=== PATIENT | male | born 1945 | race Caucasian/White ===

== ENCOUNTER 2024-01-09 21:12 | Emergency (ER) | payer MEDICARE, SELFPAY ==
[2024-01-09 21:14] VITALS: BP 153/113
[2024-01-09 21:35] VITALS: BP 160/101
[2024-01-09 21:35] LABS: % Basophils 0.4 % (0-2); % Eosinophils 2.3 % (0-6); % Immature Granulocytes 0.1 % (0-0.5); % Neutrophils 57.2 % (42.2-75.2); Absolute Eosinophils 0.2 10^3/uL (0-0.7); Absolute Lymphocytes 2.4 10^3/uL (1.2-3.4); Absolute Monocytes 0.7 10^3/uL (0.1-0.6); Absolute Neutrophils 4.5 10^3/uL (1.4-6.5); Hematocrit 43.2 % (39.0-52.0); Hemoglobin 14.3 g/dL (13.0-18.0); Mean Corp Hgb Conc. 33.1 g/dL (33.0-37.0); Mean Corpuscular Hgb 31.4 pg (27.0-31.0); Mean Corpuscular Volume 94.7 fL (80.0-94.0); Mean Platelet Volume 8.5 fL (7.4-10.4); Nucleated Red Blood Cells % 0 % (-); Platelet Count 204 10^3/uL (130-400); Red Blood Cell Count 4.56 10^6/uL (4.70-6.10); Red Cell Dist. Width 12.7 % (11.5-14.5); White Blood Cell Count 7.9 10^3/uL (4.8-10.8)
[2024-01-09 21:57] LABS: ALT (SGPT) 31 U/L (0-50); AST (SGOT) 62 U/L (17-59); Albumin 4.5 g/dl (3.5-5.0); Alkaline Phosphatase 68 U/L (38-126); Blood Urea Nitrogen 19 mg/dl (9-20); Calcium 10.2 mg/dl (8.4-10.2); Carbon Dioxide 23 mmol/L (22-30); Chloride 105 mmol/L (98-107); Glucose 82 mg/dl (70-99); Potassium 4.2 mmol/L (3.5-5.1); Sodium 139 mmol/L (135-145); Total Bilirubin 0.8 mg/dl (0.2-1.3); Total Protein 7.3 g/dl (6.3-8.2); eGFR > 60.00
[2024-01-09 22:00] VITALS: BP 127/81
[2024-01-09 22:00] LABS: Troponin I < 0.012 ng/ml
[2024-01-09] MEDS: CARDIZEM 10 MG IV (22:08)
[2024-01-09] MEDS: CARDIZEM 125 IV (22:08)
[2024-01-09 23:04] VITALS: BP 113/66; BMI 29.1
[2024-01-09 23:05] VITALS: BP 113/66
--- NOTE | 2024-01-09 23:27 | ED.GENMED ---
History of Present Illness
General
Chief Complaint: Heart Rate Problem
Source: patient
Exam Limitations: none
Time Seen by Provider: 01/09/24 21:37
Travel History
Have you had any contact with someone who has COVID-19?: No
Do you have any symptoms of coronavirus? Fever > 100 degrees, chills, cough, shortness of breath, sore throat, loss of taste or smell, muscle aches, or headache?: No
History of Present Illness
History of Present Illness:
78-year-old male felt heart racing starting this evening. No chest pain shortness of breath syncope or other complaints. Has had this intermittently for a while. Typically gets it about once a month. However last very briefly a few minutes.
Past History
Past History
ED Past Medical History: Hypercholesterolemia
ED Past Surgical History: Other (Hernia repair)
Social History
Tobacco: Non-smoker
Alcohol: Daily
Personal:
Phy Exam
Physical Exam
Physical Exam:
GENERAL: Alert and oriented in no apparent distress
EYE: Orbits normal.
NECK: Supple, no thyroid palpable
ENT: Pharynx without erythema
CARDIAC: Tachycardia/irregular irregular
LUNGS: Clear breath sounds,normal
ABDOMEN: Soft, without focal tenderness or distention
NEUROLOGICAL: Alert and oriented , grossly non-focal
SKIN: Warm and dry, no rash or lesion, no discoloration, skin intact.
MUSCULOSKELETAL: No edema,no deformity.Good color
PSYCH: Normal and appropriate interaction.
Scores
[id number] Score for Afib Stroke Risk
Age in Years (65=0, 65-74=1, >/=75=2): > or = 75
Sex (Female=+1): Male
Congestive Heart Failure History (Yes=+1): No
Hypertension History (Yes=+1): No
Stroke/TIA/Thromboembolism History (Yes=+2): No
Vascular Disease History (Yes=+1): No
Diabetes Mellitus (Yes=+1): No
Score: 2
Anticoagulation Recommendations: Recommend anticoagulation (as validated in nonvalvular fib)
Course
Orders/Labs/Results
Orders:
Orders
01/09/24 21:14
Electrocardiogram (*1) Urgent
Reason for Study: Chest Pain
Cardiac Monitoring- Treatment ONCE
EKG- Treatment ONCE
IV Insert/Care/Rem.- Treatment PRN
O2 Therapy [RESP] Urgent
Titrate/Wean O2 to maintain O2 sat greater than (%): 90
Special Instructions: Maintain sats >/=90%
Pulse Ox/spot Check [RESP] Urgent
Quantity: 1
Special Instructions: ON ROOM AIR
01/09/24 21:23
Complete Blood Count/With Diff Urgent
Comprehensive Metabolic Panel Urgent
TSH Reflex To Free T4 Urgent
Comment: ADDED
Troponin I Urgent
01/09/24 22:03
Diltiazem 125 mg/125 ml Nss [Cardizem] 125 mg in 125 ml IV NOW
Initial dose in mg/hr, then titrate:: 5
Titrate to keep:: Heart rate 80-100 bpm
Titrate by mg/hr:: 5 mg/hr
Frequency of titrations (minutes):: 15
Maximum dose in mg/hr:: 15
Diltiazem HCl [Cardizem] 10 mg IV NOW STA
01/09/24 23:30
Add On- LAB Urgent
Tests Added?: tsh reflex t4
01/10/24 00:28
Apixaban [Eliquis] 5 mg PO NOW STA
Diltiazem Extended Release [Cardizem Cd] 120 mg PO NOW STA
Abnormal Lab Results
01/09/24
21:23
RBC 4.56 L 10^6/uL
(4.70-6.10)
MCV 94.7 H fL
(80.0-94.0)
MCH 31.4 H pg
(27.0-31.0)
Absolute Monos (auto) 0.7 H 10^3/uL
(0.1-0.6)
AST 62 H U/L
(17-59)
01/09/24 21:23
01/09/24 21:23
Vital Signs
Initial and Last Documented VS:
Initial Vital Signs
Temp Pulse Resp BP Pulse Ox
98.3 F 133 19 153/113 100
01/09/24 21:14 01/09/24 21:14 01/09/24 21:14 01/09/24 21:14 01/09/24 21:14
Last Documented Vital Signs
Temp Pulse Resp BP Pulse Ox
98.3 F 95 24 104/59 97
01/09/24 21:14 01/10/24 00:54 01/10/24 00:45 01/10/24 00:54 01/10/24 00:15
*Pulse Oximetry
Patient hypoxic: no
*EKG
Interpreted by ED Provider?: Yes
Interpretation: abnormal
Comparison EKG: changes noted
Heart Rate: 135
Rate: tachycardiac
Rhythm: a-fib
[place]: normal axis
Interval: normal interval
QRS Pattern: low voltage
Ischemia: non-specific ST changes
*Hand Turner Interpretation
Rate: tachycardiac
Interpretation: abnormal
Heart Rate: 130
Rhythm: a-fib
*Critical Care Note
Total Time (30-74mins, 75-104mins- exclusive of procedures): 15
Update Note
Update Note:
Heart rate in the low 100s. Patient is remained clinically stable and nontoxic. With some uncertainty as to time onset or feeling of the atrial fibrillation, it is not a cardioversion candidate. Medically stable for discharge. Will start
Cardizem CD, Eliquis. No contraindication. Risk explained. Message left with cardiology for close follow-up
ED Attending Note
-
Portions of this chart may have been created with voice recognition software.� Occasional wrong word or��sound alike� substitutions may have occurred due to the inherent limitations of voice recognition software.
Discharge Plan
Departure
Patient Disposition: Home (Routine Discharge)
Date of Disposition: 01/10/24
Time of Disposition: 00:32
Patient with high blood pressure during this ER visit?: No
Discharge Problem:
Atrial fibrillation/RVR
Instructions: Atrial Fibrillation (DC), Going Home on Blood Thinners
Prescriptions:
New
Eliquis 5 mg tablet
5 mg PO BID Qty: 60 0RF
diltiazem HCl [Cardizem CD] 120 mg capsule,extended release 24hr
120 mg PO DAILY Qty: 30 0RF
Referrals:
Obi Fitch MD [Family Provider] - Follow up in 2-3 days
Avery Connors MD [Active] - Follow up in 2-3 days
Activity Restrictions/Additional Instructions:
Call the ship unloader first thing in the morning for follow-up in the next 2 to 3 days
Your prescriptions were sent to your pharmacy
Interventions
Interventions:
*Risk Screen - Suicide Last Done: 01/09/24 21:14
*General Assessment Last Done: 01/09/24 21:14
*Neglect/Abuse Screening Last Done: 01/09/24 21:14
ED- Fall Risk Assessment Last Done: 01/10/24 01:00
*ED COVID-19 Vaccine History Last Done: 01/09/24 21:14
*Nursing Disposition Last Done: 01/10/24 01:00
ED- Cardiac Assessment Last Done: 01/09/24 21:51
ED- Pulmonary Assessment Last Done: 01/09/24 21:51
Discharge Date and Time
Discharge Date/Time: 01/10/24 01:00
Print Language: ITALIAN
[2024-01-10] VITALS: BP 104/59
[2024-01-10 00:41] LABS: TSH Reflex To Free T4 2.82 uIU/ml (0.47-4.68)
[2024-01-10] MEDS: CARDIZEM CD 120 MG PO (00:54)
[2024-01-10] MEDS: ELIQUIS 5 MG PO (00:55)
== END 2024-01-10 01:00 | disposition home or self-care (01) ==
LOC: EMR 21:12
PROVIDERS: EMERGENCY PHYSICIAN Emergency Medicine; FAMILY PHYSICIAN Internal Medicine
DX: I48.91 Unspecified atrial fibrillation (principal); E78.00 Pure hypercholesterolemia, unspecified; Z79.01 Long term (current) use of anticoagulants
CPT/HCPCS: 99283; 96374; 96376; 80053; 84443; 84484; 85025; 93005

== ENCOUNTER → 2024-01-31 11:03 | Outpatient (REF) | payer MEDICARE, SELFPAY | LOC: DHCBC/DCA 11:03 | PROVIDERS: ATTENDING PHYSICIAN Internal Medicine Cardiovascular Disease; FAMILY PHYSICIAN Internal Medicine | DX: I48.0 Paroxysmal atrial fibrillation (principal); R07.89 Other chest pain | CPT/HCPCS: 78452; 93017; A9500; J2785 ==

== ENCOUNTER → 2024-02-08 11:06 | Outpatient (REF) | payer MEDICARE, SELFPAY | LOC: HWRCS 11:06 | PROVIDERS: ATTENDING PHYSICIAN Internal Medicine Cardiovascular Disease; FAMILY PHYSICIAN Internal Medicine | DX: I48.0 Paroxysmal atrial fibrillation (principal); R07.89 Other chest pain | CPT/HCPCS: 93306 ==

== ENCOUNTER → 2024-09-04 10:30 | Outpatient (REF) | payer MEDICARE, SELFPAY ==
[2024-09-04 11:33] LABS: % Basophils 0.6 % (0-2); % Eosinophils 2.6 % (0-6); % Immature Granulocytes 0.3 % (0-0.5); % Lymphocytes 23.1 % (20.5-51.1); % Monocytes 9.1 % (1.7-9.3); % Neutrophils 64.3 % (42.2-75.2); Absolute Eosinophils 0.2 10^3/uL (0-0.7); Absolute Lymphocytes 1.6 10^3/uL (1.2-3.4); Absolute Monocytes 0.6 10^3/uL (0.1-0.6); Absolute Neutrophils 4.5 10^3/uL (1.4-6.5); Hemoglobin 15.1 g/dL (13.0-18.0); Mean Corp Hgb Conc. 33.6 g/dL (33.0-37.0); Mean Corpuscular Hgb 32.1 pg (27.0-31.0); Mean Corpuscular Volume 95.5 fL (80.0-94.0); Mean Platelet Volume 8.5 fL (7.4-10.4); Nucleated Red Blood Cells % 0 % (-); Platelet Count 209 10^3/uL (130-400); Red Blood Cell Count 4.71 10^6/uL (4.70-6.10); Red Cell Dist. Width 12.7 % (11.5-14.5); White Blood Cell Count 6.9 10^3/uL (4.8-10.8)
[2024-09-04 11:38] LABS: Urine Albumin Negative (Neg - Trace); Urine Bilirubin Negative (Negative); Urine Character Clear (Clear); Urine Color Yellow; Urine Glucose Negative (Negative); Urine Ketone Negative (Negative); Urine Leukocyte Negative (Negative); Urine Nitrite Negative (Negative); Urine Occult Blood Negative (Negative); Urine Urobilinogen Negative (Neg - 1+)
[2024-09-04 11:56] LABS: ALT (SGPT) 18 U/L (0-50); AST (SGOT) 25 U/L (17-59); Albumin 4.5 g/dl (3.5-5.0); Alkaline Phosphatase 52 U/L (38-126); Blood Urea Nitrogen 14 mg/dl (9-20); Calcium 9.7 mg/dl (8.4-10.2); Carbon Dioxide 30 mmol/L (22-30); Chloride 103 mmol/L (98-107); Glucose 100 mg/dl (70-99); HDL Cholesterol 95 mg/dl; LDL Cholesterol, Calculated 97 mg/dl; Potassium 3.9 mmol/L (3.5-5.1); Sodium 140 mmol/L (135-145); Total Bilirubin 1.4 mg/dl (0.2-1.3); Total Cholesterol 209 mg/dl (50-199); Total Protein 7.2 g/dl (6.3-8.2); Triglyceride 88 mg/dl (10-149); Very Low Density Lipoprotein 17 mg/dl (0-30); eGFR > 60.00
[2024-09-04 12:27] LABS: PSA, Total - Diagnostic 1.11 ng/ml (0.0-4.0); TSH Reflex To Free T4 1.23 uIU/ml (0.47-4.68)
== END ==
LOC: REG 10:30
PROVIDERS: ATTENDING PHYSICIAN Internal Medicine
DX: C61 Malignant neoplasm of prostate (principal); I48.0 Paroxysmal atrial fibrillation; E78.2 Mixed hyperlipidemia; N40.1 Benign prostatic hyperplasia with lower urinary tract symptoms; E78.00 Pure hypercholesterolemia, unspecified
CPT/HCPCS: 36415; 80053; 80061; 81003; 84153; 84443; 85025

== ENCOUNTER → 2024-10-31 12:02 | Outpatient (REF) | payer MEDICARE, SELFPAY ==
[2024-10-31 14:12] LABS: Direct Bilirubin 0.3 mg/dl (0.0-0.4); Total Bilirubin 1.2 mg/dl (0.2-1.3)
== END ==
LOC: REG 12:02
PROVIDERS: ATTENDING PHYSICIAN Internal Medicine
DX: R17 Unspecified jaundice (principal)
CPT/HCPCS: 36415; 82247; 82248

== ENCOUNTER → 2025-01-30 09:56 | Outpatient (REF) | payer MEDICARE, SELFPAY | LOC: HWRCS 09:56 | PROVIDERS: ATTENDING PHYSICIAN Internal Medicine Cardiovascular Disease; FAMILY PHYSICIAN Internal Medicine | DX: I35.0 Nonrheumatic aortic (valve) stenosis (principal); I77.810 Thoracic aortic ectasia | CPT/HCPCS: 93306 ==

== ENCOUNTER → 2025-09-17 09:09 | Outpatient (REF) | payer MEDICARE, SELFPAY ==
[2025-09-17 09:57] LABS: Hematocrit 42.1 % (39.0-52.0); Hemoglobin 13.9 g/dL (13.0-18.0); Mean Corp Hgb Conc. 33.0 g/dL (33.0-37.0); Mean Corpuscular Volume 93.8 fL (80.0-94.0); Nucleated Red Blood Cells % 0 % (-); Platelet Count 213 10^3/uL (130-400); Red Cell Dist. Width 12.5 % (11.5-14.5)
[2025-09-17 10:06] LABS: Urine Character Clear (Clear)
[2025-09-17 10:15] LABS: Urine Red Blood Cell 0-2 /HPF (0-2)
[2025-09-17 11:21] LABS: ALT (SGPT) 14 U/L (0-50); AST (SGOT) 21 U/L (17-59); Albumin 4.4 g/dl (3.5-5.0); Alkaline Phosphatase 62 U/L (38-126); Blood Urea Nitrogen 18 mg/dl (9-20); Calcium 9.4 mg/dl (8.4-10.2); Carbon Dioxide 25 mmol/L (22-30); Chloride 106 mmol/L (98-107); Glucose 92 mg/dl (70-99); HDL Cholesterol 89 mg/dl; LDL Cholesterol, Calculated 91 mg/dl; Potassium 4.5 mmol/L (3.5-5.1); Sodium 137 mmol/L (135-145); Total Protein 7.3 g/dl (6.3-8.2); Very Low Density Lipoprotein 11 mg/dl (0-30); eGFR > 60.00
[2025-09-17 11:32] LABS: TSH 1.23 uIU/ml (0.47-4.68)
== END ==
LOC: REG 09:09
PROVIDERS: ATTENDING PHYSICIAN Internal Medicine
DX: E78.5 Hyperlipidemia, unspecified (principal); I48.0 Paroxysmal atrial fibrillation; C61 Malignant neoplasm of prostate
CPT/HCPCS: 36415; 80053; 80061; 81003; 81015; 84443; 85025